=== PATIENT | female | born 1990 | race Caucasian/White ===

== ENCOUNTER → 2020-06-21 | Outpatient (REF) | payer BC | LOC: M LAB REF 11:29 | PROVIDERS: ATTEND Physician Assistant | DX: Z11.59 Encounter for screening for other viral diseases (principal) ==

== ENCOUNTER → 2020-08-16 | Outpatient (REF) | payer BC ==
[2020-08-16 18:45] LABS: HEMATOCRIT 37.4 % (36.0-47.0); HEMOGLOBIN 12.5 g/dl (12.0-15.5); MEAN CORPUSCULAR HEMOGLOBIN 28.2 pg (27.0-33.0); MEAN CORPUSCULAR HGB CONC 33.4 g/dl (32.0-36.5); MEAN CORPUSCULAR VOLUME 84.2 fl (80.0-96.0); PLATELET COUNT, AUTOMATED 219 10^3/uL (150-450); RED BLOOD COUNT 4.44 10^6/uL (4.00-5.40); WHITE BLOOD COUNT 7.5 10^3/uL (4.0-10.0)
[2020-08-16 20:05] LABS: HEPATITIS C VIRUS ABY INDEX 0.1 INDEX (<0.8); HIV 1&2 SCREEN CENTAUR NEGATIVE (NEGATIVE)
[2020-08-16 20:50] LABS: CHLAMYDIA DNA AMPLIFICATION NEGATIVE (NEGATIVE); GC DNA AMPLIFICATION NEGATIVE (NEGATIVE)
== END ==
LOC: M PLALAB 15:10
PROVIDERS: ATTEND Advanced Practice Midwife
DX: Z34.81 Encounter for supervision of other normal pregnancy, first trimester (principal)

== ENCOUNTER → 2020-09-11 | Outpatient (CLI) | payer BC | LOC: M WHC 16:07 | PROVIDERS: ATTEND Obstetrics & Gynecology | DX: Z3A.17 17 weeks gestation of pregnancy (principal) ==

== ENCOUNTER → 2020-09-27 | Outpatient (CLI) | payer BC ==
--- NOTE | 2020-09-27 18:07 | REP ---
INDICATION: ANATOMY. COMPARISON: None. TECHNIQUE: Multiple sonographic images of the gravid uterus. FINDINGS: There is a single intrauterine gestation. position is variable. The placenta is posterior with grade 1 maturity. There is no previa. The umbilical cord inserts centrally on the placenta. There is a three-vessel cord. The cervix measures 3.0 cm. heart rate is 162 beats per minute. Amniotic fluid volume subjectively is normal. The composite ultrasound gestational age by today's study is 19 weeks 6 days with an ANTOINE of 02/15/2021. The LMP is unknown. weight is 317 g. This correlates to 0 lb, 11 oz. This is the 70th percentile for 19 weeks 3 days. The following anatomic structures are identified and are unremarkable: Cranium, cavum septum pellucidum, falx, intracranial ventricles, choroid plexus, cerebellum, cisterna magna, nuchal fold, facial profile, upper lip, cardiac rhythm, four-chamber heart, cardiac right left ventricular outflow tracts, diaphragm, stomach, abdominal wall including cord insertion, right and left kidneys, bladder, right and left upper extremities, right left lower extremities and 3 vessel cord. Suboptimally demonstrated is the spine because of position. A follow-up study dedicated to this structure might be considered. IMPRESSION: The spine is suboptimally demonstrated. Consider a follow-up study of this structure. The anatomy is otherwise unremarkable. <Electronically signed by Adriano White > 09/27/20 [id number]
== END ==
LOC: M WHC 09:20
PROVIDERS: ATTEND Obstetrics & Gynecology
DX: Z34.92 Encounter for supervision of normal pregnancy, unspecified, second trimester (principal); Z3A.19 19 weeks gestation of pregnancy

== ENCOUNTER → 2020-10-12 | Outpatient (REF) | payer BC | LOC: M PLALAB 12:37 | PROVIDERS: ATTEND Obstetrics & Gynecology | DX: Z34.92 Encounter for supervision of normal pregnancy, unspecified, second trimester (principal); Z3A.22 22 weeks gestation of pregnancy; Z53.9 Procedure and treatment not carried out, unspecified reason ==

== ENCOUNTER → 2020-11-01 | Outpatient (CLI) | payer BC ==
--- NOTE | 2020-11-02 08:36 | REP ---
INDICATION: F/U ANATOMY COMPARISON: 09/27/2020 TECHNIQUE: Transabdominal obstetrical ultrasound with color Doppler evaluation. FINDINGS: Examination demonstrates a single live intrauterine in cephalic presentation. motion is identified by technologist. Placenta is noted posterior and grade 1 without evidence for placenta previa or abruption. Amniotic fluid volume is normal. Gestational age by LMP and 1st U/S 24 weeks 3 days with ANTOINE 02/18/2021. Gestational age by current measurements 24 weeks 4 days with ANTOINE 02/17/2021. FHR equals 163 beats per minute. Estimated weight 685 grams (37thpercentile). Anatomical assessment demonstrates normal structures including cranium, choroid plexus, cavum, cerebellum/posterior fossa, facial features, lungs, four-chamber heart/ventricular outflow tracts, diaphragm, stomach, cord insertion/three-vessel cord, kidneys/bladder, spine, and extremities. IMPRESSION: Single live intrauterine in cephalic presentation demonstrating appropriate interval growth. Anatomical assessment is complete and normal. <Electronically signed by Mark Aguero > 11/02/20 [id number]
== END ==
LOC: M WHC 12:23
PROVIDERS: ATTEND Obstetrics & Gynecology
DX: Z34.82 Encounter for supervision of other normal pregnancy, second trimester (principal)

== ENCOUNTER → 2020-11-20 | Outpatient (REF) | payer BC ==
[2020-11-20 13:11] LABS: HEMATOCRIT 34.7 % (36.0-47.0); HEMOGLOBIN 11.4 g/dl (12.0-15.5); MEAN CORPUSCULAR HEMOGLOBIN 29.4 pg (27.0-33.0); MEAN CORPUSCULAR HGB CONC 32.9 g/dl (32.0-36.5); MEAN CORPUSCULAR VOLUME 89.4 fl (80.0-96.0); PLATELET COUNT, AUTOMATED 189 10^3/uL (150-450); RED BLOOD COUNT 3.88 10^6/uL (4.00-5.40)
== END ==
LOC: M PLALAB 09:18
PROVIDERS: ATTEND Obstetrics & Gynecology
DX: Z34.92 Encounter for supervision of normal pregnancy, unspecified, second trimester (principal); Z3A.22 22 weeks gestation of pregnancy

== ENCOUNTER → 2021-01-23 | Outpatient (REF) | payer BC | LOC: M SFHCWAGY 18:09 | PROVIDERS: ATTEND Obstetrics & Gynecology | DX: Z36.85 Encounter for antenatal screening for Streptococcus B (principal); Z3A.36 36 weeks gestation of pregnancy ==

== ENCOUNTER 2021-01-27 04:15 | Inpatient (IN) | payer BC ==
[~2021-01-27] VITALS: Ht 162.6 cm; Wt 64.7 kg
[2021-01-27 04:18] VITALS: BP 118/71
[2021-01-27] MEDS ORDERED: OXYTOCIN INJ 10 UNITS/ML VIAL (J2590) As Ordered ONE (04:23)
[2021-01-27 04:29] VITALS: BP 121/82
[2021-01-27] MEDS ORDERED: DIBUCAINE 1% OINTMENT 30GM TOP PRN (04:40)
[2021-01-27] MEDS ORDERED: IBUPROFEN 600MG TAB PO PRN (04:40)
[2021-01-27] MEDS ORDERED: OXYTOCIN INJ 10 UNITS/ML VIAL (J2590) IM PRN (04:40)
[2021-01-27] MEDS ORDERED: ACETAMINOPHEN 500 MG TAB PO PRN (04:40)
[2021-01-27] MEDS ORDERED: ANUSOL HC CREAM 30GM TOP PRN (04:40)
[2021-01-27] MEDS ORDERED: ACETAMINOPHEN TAB 650MG DOSE (2X325MG) PO PRN (04:40)
[2021-01-27] MEDS ORDERED: RHOGAM 300 MCG (1500 IU) INJ (J2790) IM SCH (04:40)
[2021-01-27] MEDS ORDERED: MOM 30ML SUSPENSION UDC PO PRN (04:40)
[2021-01-27] MEDS ORDERED: IBUPROFEN 800 MG TAB PO PRN (04:40)
[2021-01-27] MEDS ORDERED: DOCUSATE SODIUM 100MG CAPSULE PO PRN (04:40)
[2021-01-27] MEDS ORDERED: MEASLES,MUMPS,RUBELLA VACCINE INJ (MMR-II) (90707) SC SCH (04:40)
[2021-01-27 04:43] VITALS: BP 118/79
[2021-01-27] MEDS: METHYLERGONOVINE MALEATE 0.2 MG TAB PO SCH ×4 (04:52→22:53)
[2021-01-27 05:13] VITALS: BP 130/81
[2021-01-27 05:47] LABS: HEMATOCRIT 38.3 % (36.0-47.0); HEMOGLOBIN 13.1 g/dl (12.0-15.5); MEAN CORPUSCULAR HEMOGLOBIN 29.4 pg (27.0-33.0); MEAN CORPUSCULAR HGB CONC 34.2 g/dl (32.0-36.5); MEAN CORPUSCULAR VOLUME 86.1 fl (80.0-96.0); PLATELET COUNT, AUTOMATED 145 10^3/uL (150-450); RED BLOOD COUNT 4.45 10^6/uL (4.00-5.40); WHITE BLOOD COUNT 12.9 10^3/uL (4.0-10.0)
[2021-01-27 06:00] VITALS: BP 121/79
[2021-01-27] MEDS: PRENATAL VITAMINS CHEWABLE TABLET PO SCH (11:22)
[2021-01-27 17:30] VITALS: BP 120/78
[2021-01-28] MEDS ORDERED: METHYLERGONOVINE MALEATE 0.2 MG TAB PO PRN (05:00)
[2021-01-28 06:06] VITALS: BP 115/78
[2021-01-28] MEDS: PRENATAL VITAMINS CHEWABLE TABLET PO SCH (09:15)
[2021-01-28] MEDS ORDERED: IBUP80TA PO (11:34)
[2021-01-28] MEDS ORDERED: PRENCHW PO (11:34)
[2021-01-28] MEDS ORDERED: DOK1CAP4 PO (11:34)
== END 2021-01-28 14:30 | disposition home or self-care (01) | DRG 544 ==
LOC: M LDI 04:15 → M OBS 05:30
PROVIDERS: ADMIT Advanced Practice Midwife; ATTEND Advanced Practice Midwife
PROC: 10D17ZZ Extraction of Products of Conception, Retained, Via Natural or Artificial Opening (ICD-10-PCS; principal; 2021-01-27)
DX: O73.0 Retained placenta without hemorrhage (principal)

== ENCOUNTER → 2022-09-22 | Outpatient (REF) | payer BC ==
[~2022-09-22] MED LIST: DOK1CAP4 PO; IBUP80TA PO; PRENCHW PO
== END ==
LOC: M LAB REF 08:48
PROVIDERS: ATTEND Physician Assistant Medical
DX: R07.0 Pain in throat (principal)

== ENCOUNTER → 2023-04-04 | Outpatient (CLI) | payer BC | LOC: M PLALAB 13:42 | PROVIDERS: ATTEND Advanced Practice Midwife | DX: O20.0 Threatened abortion (principal) ==

== ENCOUNTER → 2024-07-06 | Outpatient (REF) | payer BC | LOC: M PLALAB 10:00 | PROVIDERS: ATTEND Nurse Practitioner Family | DX: Z34.80 Encounter for supervision of other normal pregnancy, unspecified trimester (principal); Z53.9 Procedure and treatment not carried out, unspecified reason ==

== ENCOUNTER → 2024-07-15 | Outpatient (CLI) | payer BC ==
[2024-07-15 11:03] LABS: HEMATOCRIT 38.9 % (36.0-47.0); MEAN CORPUSCULAR HEMOGLOBIN 27.8 pg (27.0-33.0); MEAN CORPUSCULAR HGB CONC 33.4 g/dl (32.0-36.5); MEAN CORPUSCULAR VOLUME 83.1 fl (80.0-96.0); PLATELET COUNT, AUTOMATED 188 10^3/uL (150-450); RED BLOOD COUNT 4.68 10^6/uL (4.00-5.40); WHITE BLOOD COUNT 5.2 10^3/uL (4.0-10.0)
[2024-07-15 11:31] LABS: TOTAL PROTEIN,RANDOM URINE 19.2 MG/DL (0.0-14.0); URIC ACID 3.3 MG/DL (3.1-7.8)
[2024-07-15 11:34] LABS: LDH LACTATE DEHYDROGENASE 151 U/L (120-246)
[2024-07-15 11:35] LABS: ALT/SGPT 15 U/L (7.0-40); AST/SGOT 14 U/L (<34); BILIRUBIN,TOTAL 0.4 MG/DL (0.3-1.2); CREATININE,RANDOM URINE 154.9 MG/DL; GLOMERULAR FILTRATION RATE > 60.0 (>60)
[2024-07-15 11:58] LABS: GC DNA AMPLIFICATION NEGATIVE (NEGATIVE)
[2024-07-15 19:12] LABS: HIV 1&2 SCREEN NEGATIVE (NEGATIVE)
[2024-07-15 19:20] LABS: HEPATITIS C VIRUS ABY INDEX < 0.02 INDEX (<0.8)
== END ==
LOC: M PLALAB 08:34
PROVIDERS: ATTEND Nurse Practitioner Family
DX: Z34.80 Encounter for supervision of other normal pregnancy, unspecified trimester (principal); Z3A.00 Weeks of gestation of pregnancy not specified

== ENCOUNTER → 2024-09-03 | Outpatient (CLI) | payer BC | LOC: M WHC 13:54 | PROVIDERS: ATTEND Nurse Practitioner Family | DX: Z34.80 Encounter for supervision of other normal pregnancy, unspecified trimester (principal) ==

== ENCOUNTER → 2024-10-12 | Outpatient (CLI) | payer BC ==
[2024-10-12 15:48] LABS: GLUCOSE CHALLENGE TEST 1 HOUR 105 MG/DL (LESS THAN 140)
[2024-10-12 15:51] LABS: HEMATOCRIT 34.7 % (36.0-47.0); HEMOGLOBIN 11.7 g/dl (12.0-15.5); MEAN CORPUSCULAR HEMOGLOBIN 30.1 pg (27.0-33.0); MEAN CORPUSCULAR HGB CONC 33.7 g/dl (32.0-36.5); MEAN CORPUSCULAR VOLUME 89.2 fl (80.0-96.0); PLATELET COUNT, AUTOMATED 202 10^3/uL (150-450); RED BLOOD COUNT 3.89 10^6/uL (4.00-5.40); WHITE BLOOD COUNT 9.2 10^3/uL (4.0-10.0)
[2024-10-12 16:24] LABS: HIV 1&2 SCREEN NEGATIVE (NEGATIVE)
[2024-10-12 16:33] LABS: HEPATITIS C VIRUS ABY INDEX 0.02 INDEX (<0.8)
[2024-10-12 16:53] LABS: Trichomonas vaginalis (AMP) NOT DETECTED (NEGATIVE)
[2024-10-12 17:16] LABS: GC DNA AMPLIFICATION NEGATIVE (NEGATIVE)
== END ==
LOC: M PLALAB 11:01
PROVIDERS: ATTEND Specialist
DX: Z34.82 Encounter for supervision of other normal pregnancy, second trimester (principal); Z3A.00 Weeks of gestation of pregnancy not specified

== ENCOUNTER → 2024-11-02 | Outpatient (CLI) | payer BC | LOC: M WHC 13:21 | PROVIDERS: ATTEND Obstetrics & Gynecology | DX: Z34.80 Encounter for supervision of other normal pregnancy, unspecified trimester (principal); Z53.9 Procedure and treatment not carried out, unspecified reason ==

== ENCOUNTER → 2024-11-04 | Outpatient (CLI) | payer BC | LOC: M WHC 08:38 | PROVIDERS: ATTEND Obstetrics & Gynecology | DX: Z34.83 Encounter for supervision of other normal pregnancy, third trimester (principal); Z3A.28 28 weeks gestation of pregnancy ==

== ENCOUNTER → 2024-12-28 | Outpatient (REF) | payer BC ==
[~2024-12-28] MED LIST changes: +ACET-683 PO
== END ==
LOC: M PLALAB 08:55
PROVIDERS: ATTEND Obstetrics & Gynecology
DX: Z34.83 Encounter for supervision of other normal pregnancy, third trimester (principal)

== ENCOUNTER → 2024-12-29 | Outpatient (CLI) | payer BC | LOC: M WHC 10:06 | PROVIDERS: ATTEND Nurse Practitioner Family | DX: O09.523 Supervision of elderly multigravida, third trimester (principal); Z3A.36 36 weeks gestation of pregnancy ==

== ENCOUNTER 2025-01-02 05:43 | Inpatient (IN) | payer BC ==
[~2025-01-02] VITALS: Ht 162.6 cm; Wt 70.4 kg
[2025-01-02] VITALS (15 sets, daily range): BP systolic 106–156; BP diastolic 64–91; O2SAT 98
[~2025-01-02 05:43] MED LIST changes: -ACET-683 PO
[2025-01-02] MEDS ORDERED: CARBOPROST TROMETHAMINE 250 MCG/ML AMP IM PRN (06:55)
[2025-01-02] MEDS ORDERED: TRANEXAMIC ACID INJection 1,000 MG in NS 100 ML IV PRN (06:55)
[2025-01-02] MEDS ORDERED: METHYLERGONOVINE MALEATE 0.2 MG/ML 1 ML VIAL IM PRN (06:55)
[2025-01-02] MEDS ORDERED: LIDOCAINE 1% MDV 20 ML VIAL INFIL PRN (06:55)
[2025-01-02 07:21] LABS: PLATELET COUNT, AUTOMATED 117 10^3/uL (150-450)
[2025-01-02] MEDS ORDERED: HOME MED LIST COMPLETE! XX SCH (07:50)
[2025-01-02 08:26] LABS: HEPATITIS C VIRUS ABY INDEX 0.03 INDEX (<0.8)
[2025-01-02] MEDS: OXYTOCIN DRIP 30 UNITS in IV 1 EA IV PRN (19:10)
[2025-01-02] MEDS ORDERED: ACETAMINOPHEN 500 MG TAB As Ordered ONE (19:14)
[2025-01-02] MEDS ORDERED: DOCUSATE SODIUM 100 MG CAPSULE PO PRN (19:35)
[2025-01-02] MEDS ORDERED: ANUSOL HC CREAM 30 GM TOP PRN (19:35)
[2025-01-02] MEDS ORDERED: DIBUCAINE 1% OINTMENT 30 GM TOP PRN (19:35)
[2025-01-02] MEDS ORDERED: IBUPROFEN 600 MG TAB PO PRN (19:35)
[2025-01-02] MEDS ORDERED: CALCIUM CARBONATE 500 MG CHEW U/D PO PRN (19:35)
[2025-01-02] MEDS ORDERED: ACETAMINOPHEN 500 MG TAB PO PRN (19:35)
[2025-01-02] MEDS ORDERED: ONDANSETRON 4MG 2ML VIAL IV PRN (19:35)
[2025-01-02] MEDS ORDERED: ACETAMINOPHEN 325 MG TAB PO PRN (19:35)
[2025-01-02] MEDS: IBUPROFEN 800 MG TAB PO ONE (20:01)
[2025-01-02] MEDS: ACETAMINOPHEN 500 MG TAB PO ONE (20:02)
[2025-01-02] MEDS: LR 1,000 ML IV SCH ×2 (21:27→21:28)
[2025-01-02] MEDS: LACTATED RINGER'S 1000 ML IV STA (21:27)
[2025-01-02] MEDS: OXYTOCIN DRIP 30 UNITS in IV 1 EA IV SCH (21:28)
[2025-01-03] MEDS: IBUPROFEN 800 MG TAB PO PRN (05:32)
[2025-01-03 06:15] VITALS: BP 129/83; O2SAT 99
[2025-01-03] MEDS: PRENATAL VITAMINS CHEWABLE TABLET PO SCH (09:14)
[2025-01-03 17:55] VITALS: BP 134/80; O2SAT 99
[2025-01-04 06:12] VITALS: BP 120/85; O2SAT 97
[2025-01-04] MEDS: MEASLES,MUMPS,RUBELLA VACCINE INJ (MMR-II) SC.IMMUN ONE (07:15)
[2025-01-04] MEDS: RHOGAM 300MCG (1500IU) INJ IM SCH (07:16)
[2025-01-04] MEDS ORDERED: IBUP80TA PO (11:15)
[2025-01-04] MEDS ORDERED: ACET-683 PO (11:15)
== END 2025-01-04 12:20 | disposition home or self-care (01) | DRG 560 ==
LOC: M LDO 05:43 → M LDI 06:58 → M OBS 21:14
PROVIDERS: ADMIT Obstetrics & Gynecology; ATTEND Obstetrics & Gynecology
PROC: 10E0XZZ Delivery of Products of Conception, External Approach (ICD-10-PCS; principal; 2025-01-02)
DX: O62.3 Precipitate labor (principal); O09.523 Supervision of elderly multigravida, third trimester; Z37.0 Single live birth; Z3A.37 37 weeks gestation of pregnancy